=== PATIENT | male | born 1970 | race Caucasian/White ===

== ENCOUNTER 2022-01-14 10:17 | Day surgery (SDC) | payer OTHER, BC, SELFPAY ==
[2022-01-02 09:15] VITALS: BMI 27.1
[2022-01-14 10:25] VITALS: BP 118/90; PULSE 68; RESP 16; TEMP 36.7; O2SAT 99
--- NOTE | 2022-01-14 10:33 | P.PNAN_ITS ---
Anes - Initial Pre Proc Eval Procedure: Operation Date: 01/14/22 13:00 Proposed Procedures p Screening Colonoscopy - Burke Zavala MD Date/Time: 01/14/22 10:33 Surgeon: Burke Zavala MD Pre Op Diagnosis: Neoplasm Screening Patient Data Age: 51 Gender: M Height: 1.83 m Weight: 91 kg Allergies Allergy/AdvReac Type Severity Reaction Status Date / Time No Known Allergies Allergy Verified 01/02/22 09:19 Home Medications Medication Instructions Recorded Confirmed Type levothyroxine 100 mcg tablet 100 mcg PO DAILY 02/16/20 01/02/22 History (Synthroid) omega 3-usu-xvf-fish oil 900 1 cap PO BID 05/21/20 01/02/22 History mg-1,400 mg capsule,delayed release (Fish Oil) multivitamin 1 tablet PO DAILY 08/21/21 01/02/22 History sodium sul 1.479 gram-potas ch See Rx Instructions PO PER PKG DIR 09/27/21 01/02/22 Rx 0.188 gram-magnes sul 0.225 gram #24 tabs tablet (Sutab) Patient hx anesthesia problems: none Family hx anesthesia problems: none Results Review: All pre-operative results and documents have been reviewed as part of the pre- operative evaluation. [facility] Past Medical History Medical History Dyslipidemia GERD without esophagitis Hypothyroidism (acquired) Surgical History Surgical History History of wisdom tooth extraction 1985 Family History Family History Father Family history of thyroid disease Family history of hypercholesterolemia Family history of malignant neoplasm Mother Family history of colonic diverticulitis Other Family history of Parkinson's disease Social History Social History Smoking status: Never smoker Alcohol intake: never Substance use: never Substance use type: does not use Living arrangements: with family Spiritual care concerns: No Anes - Eval Final PreProcedure Day of Procedure 01/14/22 10:33 Patient weight: overweight Heart: regular rate and rhythm Lungs: clear to auscultation Airway: Mallampati scale class II Neurological: alert and oriented Last oral intake: >/= 8 hours ASA classification: II Emergent: no Anesthetic plan: proceed Anesthesia type and monitoring: general GIVS and standard monitoring Results Review: All pre-operative results and documents have been reviewed as part of the pre- operative evaluation. Informed Consent: The patient's anesthetic plan and its attendant risks and benefits were discussed with the patient/family/POA. Questions were solicited and answers provided to the satisfaction of the patient/family/POA.
[2022-01-14 10:44] VITALS: BMI 28.0
[2022-01-14] MEDS: LACTATED RINGERS 1,000 ML 150 ML IV CONT (10:48)
--- NOTE | 2022-01-14 10:48 | PM.HPGS ---
History of Present Illness History of Present Illness Consent: Risks, benefits, and alternatives have been discussed and questions answered. Patient agrees to proceed with procedure. Chief complaint: Neoplasm Screening Narrative: Gee Figueredo is a 51 year old male here for screening colonoscopy, had one about 15 years ago when had rectal bleeding Review of Systems Constitutional: Constitutional: Denies headache(s) and Denies weakness Eyes: Eyes: Denies blurry vision ENT: Reports Normal hearing present, Denies headache(s) and Denies neck pain Cardiovascular: Cardiovascular: Denies chest pain and Denies dyspnea Respiratory: Respiratory: Denies dyspnea Gastrointestinal: Gastrointestinal: Reports no additional gastrointestinal complaints Genitourinary: Genitourinary: Denies dysuria Musculoskeletal: Musculoskeletal: Denies neck pain Integumentary/Breasts: Skin/Breast: Denies dry skin Neurologic: Reports Normal hearing present, Denies headache(s) and Denies weakness Psychiatric: Psychiatric: Denies anxiety Endocrine: Endocrine: Denies change in body appearance Hematologic/Lymphatic: Hematologic/Lymphatic: Denies easy bleeding Allergic/Immunologic: Allergic/Immunologic: Denies urticaria PMFSH Past Medical History Medical History (Updated 01/14/22 @ 10:48 by Burke Zavala MD) Colon cancer screening Dyslipidemia GERD without esophagitis Hypothyroidism (acquired) Surgical History Surgical History History of wisdom tooth extraction 1985 Family History Family History Father Family history of thyroid disease Family history of hypercholesterolemia Family history of malignant neoplasm Mother Family history of colonic diverticulitis Other Family history of Parkinson's disease Social History Social History Smoking status: Never smoker Alcohol intake: never Substance use: never Substance use type: does not use Living arrangements: with family Spiritual care concerns: No Meds Home Medications and Allergies Home Medications Medication Instructions Recorded Confirmed Type levothyroxine 100 mcg tablet 100 mcg PO DAILY 02/16/20 01/14/22 History (Synthroid) omega 4-ucj-iuy-fish oil 900 1 cap PO BID 05/21/20 01/14/22 History mg-1,400 mg capsule,delayed release (Fish Oil) multivitamin 1 tablet PO DAILY 08/21/21 01/14/22 History sodium sul 1.479 gram-potas ch See Rx Instructions PO PER PKG DIR 09/27/21 01/02/22 Rx 0.188 gram-magnes sul 0.225 gram #24 tabs tablet (Sutab) Allergies Allergy/AdvReac Type Severity Reaction Status Date / Time No Known Allergies Allergy Verified 01/14/22 10:43 Vital Signs Vital Signs - 24 hr 01/14/22 10:25 Temperature 98.1 F Pulse Rate 68 Respiratory Rate 16 Blood Pressure 118/90 Pulse Oximetry 99 Oxygen Delivery Room Air Exam Const: General: comfortable and no acute distress HENMT: Face/Nose/Sinus: Normal nares present Eyes: General: appearance normal, both eyes and all related structures Neck: Neck: no JVD Resp: Auscultation: clear to auscultation bilaterally Cardio: Rate: regular rate Rhythm: regular rhythm GI: Inspection: non-distended GI Palp: Yes Soft to palpation Skin: General skin exam: normal color Neuro: General: gait normal Speech: normal speech Extrem: General: normal to inspection Psych: Mental Status: mental status grossly normal Assessment and Plan Assessment and plan (1) Colon cancer screening: Code(s): Z12.11 - Encounter for screening for malignant neoplasm of colon Status: Acute Assessment and Plan: colonoscopy
[2022-01-14 11:06] VITALS: BP 98/70; PULSE 70; RESP 15; O2SAT 97
[2022-01-14 11:16] VITALS: BP 101/75; PULSE 63; RESP 14; O2SAT 99
--- NOTE | 2022-01-14 11:16 | WPDANESPN ---
Anes - Prog Note Post-Op Date/Time: 01/14/22 11:16 Cardiovascular status: normal Respiratory status: normal Airway patency: baseline Mental status: baseline Post-Op hydration status: normal Vital Signs: Last Vital Signs Temp 36.7 C 01/14/22 10:25 Pulse 70 01/14/22 11:06 Resp 15 01/14/22 11:06 BP 98/70 L 01/14/22 11:06 Pulse Ox 97 01/14/22 11:06 O2 Del Method Room Air 01/14/22 11:06 Pain Score (VAS): 0 I/O: Intake & Output 01/13/22 01/14/22 01/14/22 23:59 07:59 15:59 Intake Total 400 Balance 400 Patient Feedback: Patient satisfied with anesthetic care.
[2022-01-14 11:26] VITALS: BP 107/74; PULSE 60; RESP 13; O2SAT 97
== END 2022-01-14 11:36 | disposition home or self-care (01) ==
PROVIDERS: PCP Family Medicine; Visit Provider Internal Medicine Gastroenterology
PROC: 0DJD8ZZ Inspection of Lower Intestinal Tract, Via Natural or Artificial Opening Endoscopic (ICD-10-PCS; CPT 45378; principal; 2022-01-14 13:00)
DX: Z12.11 Encounter for screening for malignant neoplasm of colon (principal)
CPT/HCPCS: 45380

== ENCOUNTER 2022-01-14 13:00 | Outpatient (NON) | payer OTHER, BC, SELFPAY | END 2022-01-14 13:01 | disposition home or self-care (01) | LOC: ANHLAB 01-15 08:13 | PROVIDERS: PCP Family Medicine; Visit Provider Internal Medicine Gastroenterology | DX: Z12.11 Encounter for screening for malignant neoplasm of colon (principal); K63.5 Polyp of colon | CPT/HCPCS: 88305 ==

== ENCOUNTER 2022-05-29 11:27 | Outpatient (CLI) | payer OTHER, BC, SELFPAY ==
[2022-05-29 20:29] LABS: Kit Draw Collected
== END 2022-05-29 11:28 | disposition home or self-care (01) ==
LOC: ANHGOSHLAB 11:29
PROVIDERS: PCP Family Medicine; Visit Provider Nurse Practitioner
DX: M10.9 Gout, unspecified (principal)
CPT/HCPCS: 36415